=== PATIENT | male | born 1960 | race Hispanic/Latino ===

== ENCOUNTER 2018-02-15 02:05 | Emergency (ER) | payer SELFPAY ==
[2018-02-15 02:16] VITALS: TEMP 97.4
[2018-02-15] MEDS ORDERED: Albuterol 0.083% Inhal Sol (2.5 mg/3 mL) UD IH STA (02:43)
[2018-02-15 02:49] VITALS: RESP 20
[2018-02-15] MEDS ORDERED: Albuterol 0.083% Inhal Sol (2.5 mg/3 mL) UD ONE (02:51)
--- NOTE | 2018-02-15 02:57 | C.PDOC ---
History Of Present Illness 57 year old male with PMHx of asthma presents to the ED c/o intermittent SOB and chest tightness that started yesterday. Patient states this symptoms feel like an asthma attack. Patient ran out of his inhaler. Patient denies fever, chills, CP, palpitations, hx of recent prolonged travel, recent immobility states, or recent leg fxor cast. Time Seen by Provider: 02/15/18 02:27 Chief Complaint (Nursing): Shortness Of Breath History Per: Patient History/Exam Limitations: no limitations Onset/Duration Of Symptoms: Days, Intermittent Episodes Current Symptoms Are (Timing): Still Present Initiating Event: Upper Respiratory Illness Quality: Tightness Current Respiratory Medications: See Home Med List Associated Symptoms: Anxiety Recent travel outside of the [place]: No Additional History Per: Patient Past Medical History Reviewed: Historical Data, Nursing Documentation, Vital Signs Vital Signs: Last Vital Signs Temp 97.4 F L 02/15/18 02:12 Pulse 112 H 02/15/18 03:09 Resp 20 02/15/18 03:09 BP 144/89 02/15/18 03:09 Pulse Ox 97 02/15/18 03:40 - Medical History PMH: Asthma, Seizures Surgical History: No Surg Hx Family History: States: Unknown Family Hx - Social History Hx Alcohol Use: No Hx Substance Use: No - Immunization History Hx Tetanus Toxoid Vaccination: No Hx Influenza Vaccination: No Hx Pneumococcal Vaccination: No Review Of Systems Constitutional: Negative for: Fever, Chills Cardiovascular: Negative for: Chest Pain, Palpitations Respiratory: Positive for: Shortness of Breath. Negative for: Cough, Sputum Gastrointestinal: Negative for: Nausea, Vomiting Musculoskeletal: Negative for: Back Pain Neurological: Negative for: Headache, Dizziness Physical Exam - Physical Exam Appears: Non-toxic, Other (anxious) Skin: Normal Color, Warm, Dry Head: Atraumatic, Normacephalic Eye(s): bilateral: Normal Inspection Oral Mucosa: Moist Throat: No Exudate Neck: Normal ROM, Supple Chest: Symmetrical Cardiovascular: Rhythm Regular (tachycardic at 123) Respiratory: Decreased Breath Sounds (minimal), No Rales, No Rhonchi, No Wheezing Gastrointestinal/Abdominal: Soft, No Tenderness, No Guarding, No Rebound Extremity: Normal ROM, No Tenderness, No Calf Tenderness, No Swelling Neurological/Psych: Oriented x3, Normal Speech Gait: Steady ED Course And Treatment O2 Sat by Pulse Oximetry: 97 (ON RA) Pulse Ox Interpretation: Normal Progress Note: Plan: - Albuterol 2.5 mg. - Prednisone Reevaluation Time: 03:36 Reassessment Condition: Improved (Pt isno longer SOB, CTA appears less anxious . RX given for albuteol mDI and will f/u in clinic) Disposition Counseled Patient/Family Regarding: Diagnosis, Need For Followup, Rx Given - Disposition Referrals: [facility] [Outside] Disposition: HOME/ ROUTINE Disposition Time: 03:38 Condition: STABLE Additional Instructions: Use inhaler as needed Follow up in clinic today Return to ER if worse Prescriptions: Albuterol HFA [Ventolin HFA 90 mcg/actuation (8 g)] 2 puff IH [id number] #1 inhaler predniSONE [Prednisone] 40 mg PO DAILY #6 tab Instructions: Asthma, Adult (DC) Forms: Lexim (Maltese) - Clinical Impression Clinical Impression: Asthma exacerbation attacks - PA / [employer] / Resident Statement MD/DO has reviewed & agrees with the documentation as recorded. - Scribe Statement The provider has reviewed the documentation as recorded by the Scribe Walker Velázquez All medical record entries made by the Unaibisaías were at my direction and personally dictated by me. I have reviewed the chart and agree that the record accurately reflects my personal performance of the history, physical exam, medical decision making, and the department course for this patient. I have also personally directed, reviewed, and agree with the discharge instructions and disposition.
[2018-02-15 03:09] VITALS: BP 144/89; PULSE 112
[2018-02-15 03:39] VITALS: O2SAT 97
== END 2018-02-15 03:54 | disposition home or self-care (01) ==
LOC: C.ER 02:05
DX: J45.901 Unspecified asthma with (acute) exacerbation (principal); F17.210 Nicotine dependence, cigarettes, uncomplicated